=== PATIENT | male | born 1970 | race Caucasian/White ===

== ENCOUNTER 2016-10-30 02:06 | Inpatient (IN) | payer MEDICAID ==
[~2016-10-30] VITALS: Ht 167.6 cm; Wt 84.5 kg
[2016-10-30] VITALS (14 sets, daily range): BP systolic 110–119; BP diastolic 54–82; PULSE 58–80; RESP 13–20; TEMP 98.1; Ht 167.6 cm; Wt 84.5 kg
[~2016-10-30 02:06] MED LIST: HYDR-762 PO; KETO10TA PO; TAMS-14 PO
[2016-10-30] MEDS ORDERED: morphine 4 MG/ML VIAL IV STA (03:36)
[2016-10-30] MEDS ORDERED: SOD CHLORIDE 0.9% 500 ML IV STA (03:36)
[2016-10-30] MEDS ORDERED: ONDANSETRON 4 MG INJ IV STA (03:36)
--- NOTE | 2016-10-30 04:12 | RADRPT ---
PROCEDURE: CT Abdomen and pelvis without contrast. CLINICAL INDICATION: Abdominal pain. TECHNIQUE: CT scan of the abdomen and pelvis was performed on a multi-detector high-resolution CT scanner. Contiguous axial images were obtained from the lung bases to the ischial tuberosities wit hout intravenous contrast. Coronal and sagittal reformatted images were also obtained. Images were reviewed on the PACS workstation. One or more of the following dose reduction techniques were used: - Automated exposure control. - Adjustment of the mA and/or kV according to patient size. - Use of iterative reconstruction technique. Exam CTD/vol = 12.81 mGy. Total exam DLP = 862.46 mGy-cm. COMPARISON: 08/18/2015. FINDINGS: Evaluation of the lung bases demonstrates mild bibasilar atelectasis. Abdomen: The liver is normal in size and diffusely low in attenuation consistent with fatty infiltr ation. There is no focal mass or dilatation of the biliary tree. The gallbladder is not distended. The spleen, pancreas and bilateral adrenal glands are within normal limits. Bilateral kidneys are normal in size with no contour deforming mass identified. There are multiple renal calculi bilater ally with the largest in the upper pole of the left kidney measuring 5 mm. There is no radiopaque u reteral calculus identified. There is no hydronephrosis or hydroureter. There is no retroperitonea l adenopathy. The abdominal aorta is of normal caliber with scattered atherosclerotic calcification s. There is a small umbilical hernia containing fat. There is no bowel obstruction or free air. There is a distended and fluid filled appendix extending medial to the cecum measuring up to 10 mm in katina meter with mild adjacent stranding. There is no diverticulosis or diverticulitis. There is no asci chas. Pelvis: The bladder is unremarkable. The prostate and seminal vesicles are within normal limits. There is no significant pelvic adenopathy or free fluid. Evaluation of the osseous structures demonstrates no suspicious lytic or blastic lesion. IMPRESSION: Acute appendicitis. Bilateral nonobstructing renal calculi. Fatty infiltration of the liver. Small umbilical hernia containing fat. Vascular calcifications reflective of atherosclerosis. A call report was made to Dr. Chandler at 04:10 a.m. .Ephraim Chakraborty MD, MD Date Time Electronically viewed and signed by .Ephraim Chakraborty MD, MD on 10/30/2016 04:12 .T/
--- NOTE | 2016-10-30 04:14 | RADRPT ---
PROCEDURE: Abdominal ultrasound, limited. CLINICAL INDICATION: Abdominal pain. TECHNIQUE: Multiple real-time images were acquired of the patient's right upper abdomen utilizing a high resolution transducer. COMPARISON: None FINDINGS: The liver demonstrates normal echogenicity and size measuring 16.5 cm. There is no focal mass or in trahepatic biliary ductal dilatation. The portal vein is patent. The gallbladder is not distended. No gallstones are identified. There is no pericholecystic fluid or gallbladder wall thickening. The common bile duct measures 3.8 mm in maximal dimension. The pancreas is obscured by overlying clementina wel gas. No free fluid is identified. The right kidney is normal size and echogenicity measuring 11.3 cm. There is no focal renal mass or echogenic calculus identified. There is no obstructive uropathy. The visualized abdominal aorta a nd vena cava are unremarkable. IMPRESSION: Pancreas obscured by overlying bowel gas. Otherwise unremarkable right upper abdominal ultrasound. .Ephraim Chakraborty MD, Date Time Electronically viewed and signed by .Ephraim Chakraborty MD, MD on 10/30/2016 04:14 .T/
[2016-10-30] MEDS ORDERED: AMPICILLIN/SULB 3 GM/NS (PMX) 100 ML IVPB ONE (04:30)
[2016-10-30 04:47] LABS: ALBUMIN 4.3 g/dl (3.3-4.9); ALBUMIN/GLOBULIN RATIO 1.26; BILIRUBIN,INDIRECT 0.5 mg/dl (0-1.1); BILIRUBIN,TOTAL 0.5 mg/dl (0.2-1.3); CALCIUM 9.7 mg/dl (8.4-10.2); CREATININE 1.05 mg/dl (0.61-1.24); POTASSIUM 4.5 mmol/L (3.5-5.1); TOTAL PROTEIN 7.7 g/dl (6.1-8.1)
--- NOTE | 2016-10-30 04:51 | HP ---
Date/Time of Note Date/Time of Note DATE: 10/30/16 TIME: 04:48 Assessment/Plan VTE Prophylaxis VTE Prophylaxis Intervention: SCD's Assessment/Plan Assessment/Plan 1. Acute appendicitis 2. Jose non obstructing renal stones PLAN: Admit med surg NPO+meds, IVF, pain meds, antiemetics Gen surg consult with Dr Ramirez obtained by ER Empiric abx pending sx supportive care Plan of care has been discussed with patient, questions answered and patient has verbalized understanding. HPI/ROS Admit Date/Time Admit Date/Time 10/30/16 Hx of Present Illness 46 yo M who presents with severe abd painfrom last night. initially in his abdomen, he attributed it to food, but now in RLQ. CT consistent with acute appy. Patient is admitted for further mgt and surgical review. ROS 12 point review if systems was done and pertinent findings are as noted. Constitutional: nausea, No febrile ENT: no complaints Respiratory: no complaints Cardiovascular: no complaints Gastrointestinal: decreased appetite, nausea, pain, passing stool, No vomiting Musculoskeletal: no complaints Skin: no complaints PMH/Family/Social Past Medical History Medical History: no pertinent history Past Surgical History Past Surgical Hx: no surgical history Social History Alcohol Use: none Smoking Status: Never smoker Exam/Review of Systems Vital Signs Vitals Vital Signs Date Time Temp Pulse Resp B/P Pulse Ox O2 Delivery O2 Flow Rate FiO2 10/30/16 02:16 98.1 81 20 130/83 98 Exam Constitutional: alert, oriented Head: normocephalic Eyes: PERRL ENMT: mucosa pink and moist Neck: supple Respiratory: clear to auscultation, normal air movement Cardiovascular: bruits, regular rate and rhythm Gastrointestinal: bowel sounds, tender (RLQ mild guarding) Musculoskeletal: nl extremities to inspection Extremities: No edema Neurological: nl mental status Skin: diaphoresis Labs Result Diagram: 10/30/16 0352 Medications Medications Current Medications Ampicillin Sodium/ Sulbactam Sodium (Unasyn 3gm/NS (Pmx)) 100 ml @ 100 mls/hr ONCE ONCE IVPB ; Start 10/30/16 at 04:30; Stop 10/30/16 at 05:29 Procedures Procedures PROCEDURE: CT Abdomen and pelvis without contrast. CLINICAL INDICATION: Abdominal pain. TECHNIQUE: CT scan of the abdomen and pelvis was performed on a multi- detector high-resolution CT scanner. Contiguous axial images were obtained from the lung bases to the ischial tuberosities without intravenous contrast. Coronal and sagittal reformatted images were also obtained. Images were reviewed on the PACS workstation. One or more of the following dose reduction techniques were used: - Automated exposure control. - Adjustment of the mA and/or kV according to patient size. - Use of iterative reconstruction technique. Exam CTD/vol = 12.81 mGy. Total exam DLP = 862.46 mGy-cm. COMPARISON: 08/18/2015. FINDINGS: Evaluation of the lung bases demonstrates mild bibasilar atelectasis. Abdomen: The liver is normal in size and diffusely low in attenuation consistent with fatty infiltration. There is no focal mass or dilatation of the biliary tree. The gallbladder is not distended. The spleen, pancreas and bilateral adrenal glands are within normal limits. Bilateral kidneys are normal in size with no contour deforming mass identified. There are multiple renal calculi bilaterally with the largest in the upper pole of the left kidney measuring 5 mm. There is no radiopaque ureteral calculus identified. There is no hydronephrosis or hydroureter. There is no retroperitoneal adenopathy. The abdominal aorta is of normal caliber with scattered atherosclerotic calcifications. There is a small umbilical hernia containing fat. There is no bowel obstruction or free air. There is a distended and fluid filled appendix extending medial to the cecum measuring up to 10 mm in diameter with mild adjacent stranding. There is no diverticulosis or diverticulitis. There is no ascites. Pelvis: The bladder is unremarkable. The prostate and seminal vesicles are within normal limits. There is no significant pelvic adenopathy or free fluid. Evaluation of the osseous structures demonstrates no suspicious lytic or blastic lesion. IMPRESSION: Acute appendicitis. Bilateral nonobstructing renal calculi. Fatty infiltration of the liver. Small umbilical hernia containing fat. Vascular calcifications reflective of atherosclerosis. A call report was made to Dr. Chandler at 04:10 a.m. .Ephraim Chakraborty MD, Date Time Electronically viewed and signed by .Ephraim Chakraborty MD, MD on 10/30/2016 04:12 .T/ CC: ANNA CHANDLER MD PROCEDURE: Abdominal ultrasound, limited. CLINICAL INDICATION: Abdominal pain. TECHNIQUE: Multiple real-time images were acquired of the patient's right upper abdomen utilizing a high resolution transducer. COMPARISON: None FINDINGS: The liver demonstrates normal echogenicity and size measuring 16.5 cm. There is no focal mass or intrahepatic biliary ductal dilatation. The portal vein is patent. The gallbladder is not distended. No gallstones are identified. There is no pericholecystic fluid or gallbladder wall thickening. The common bile duct measures 3.8 mm in maximal dimension. The pancreas is obscured by overlying bowel gas. No free fluid is identified. The right kidney is normal size and echogenicity measuring 11.3 cm. There is no focal renal mass or echogenic calculus identified. There is no obstructive uropathy. The visualized abdominal aorta and vena cava are unremarkable. IMPRESSION: Pancreas obscured by overlying bowel gas. Otherwise unremarkable right upper abdominal ultrasound. .Ephraim Chakraborty MD, MD Date Time Electronically viewed and signed by .Ephraim Chakraborty MD, MD on 10/30/2016 04:14 .T/ CC: ANNA CHANDLER MD ABE, BOLATITO M. Oct 30, 2016 04:50
--- NOTE | 2016-10-30 05:11 | ERA ---
ER Documentation Chief Complaint Date/Time DATE: 10/30/16 TIME: 05:08 Chief Complaint c/o right mid abdominal pain with nausea started at 9pm HPI 46-year-old male with remote history of ureterolithiasis who presents the emergency room with right-sided abdominal pain. He described epigastric and right upper abdominal pain now slightly migratory to the right lower quadrant. It started around 8 or 9 PM yesterday evening. Mild nausea. Mild anorexia. No fevers or chills. ROS All systems reviewed and are negative except as per history of present illness. Medications Home Meds Active Scripts Tamsulosin Hcl* (Flomax*) 0.4 Mg Cap.er.24h, 0.4 MG PO DAILY, #7 CAP Prov:RODRIGO PHAM MD 08/18/15 Ketorolac Tromethamine* (Ketorolac Tromethamine*) 10 Mg Tablet, 10 MG PO Q8H Y for PAIN, #12 TAB With food or milk Prov:RODRIGO PHAM MD 08/18/15 Hydrocodone Bit-Acetaminophen* ([place]*) 10-325 Mg Tablet, 1 TAB PO Q6 Y for PAIN , #8 TAB Prov:RODRIGO PHAM MD 08/18/15 Allergies Allergies: Coded Allergies: No Known Allergy (Unverified , 08/18/15) PMhx/Soc History of Surgery: No Anesthesia Reaction: No Hx Neurological Disorder: No Hx Respiratory Disorders: No Hx Cardiac Disorders: No Hx Psychiatric Problems: No Hx Miscellaneous Medical Probl: Yes (kidney stones) Hx Alcohol Use: No Hx Substance Use: No Hx Tobacco Use: No Smoking Status: Never smoker FmHx Family History: No diabetes Physical Exam Vitals Vital Signs Date Time Temp Pulse Resp B/P Pulse Ox O2 Delivery O2 Flow Rate FiO2 10/30/16 02:16 98.1 81 20 130/83 98 Physical Exam General: Well developed, well nourished, no acute distress Head: Normocephalic, atraumatic. Eyes: Pupils equally reactive, EOM intact ENT: Moist mucous membranes Neck: Supple, no lymphadenopathy Respiratory: Lungs clear bilaterally, no distress Cardiovascular: RRR, no murmurs, rubs, or gallops Abdominal: Soft, tenderness located to McBurney's point, negative Montoya sign, no peritonitis : No hernia MSK: No edema, no unilateral swelling, 5/5 strength Neurologic: Alert and oriented, moving all extremities, normal speech, no focal weakness, no cerebellar signs Skin: No rash Psych: Normal mood Result Diagram: 10/30/16 0352 Results 24 hrs Laboratory Tests Test 10/30/16 03:52 White Blood Count Pending Red Blood Count Pending Hemoglobin Pending Hematocrit Pending Mean Corpuscular Volume Pending Mean Corpuscular Hemoglobin Pending Mean Corpuscular Hemoglobin Concent Pending Red Cell Distribution Width Pending Platelet Count Pending Mean Platelet Volume Pending Sodium Level 138mmol/L Potassium Level 4.5mmol/L Chloride Level 101mmol/L Carbon Dioxide Level 27mmol/L Anion Gap 15 Blood Urea Nitrogen 14mg/dl Creatinine 1.05mg/dl Glucose Level 148mg/dl Calcium Level 9.7mg/dl Total Bilirubin 0.5mg/dl Direct Bilirubin 0.00mg/dl Indirect Bilirubin 0.5mg/dl Aspartate Amino Transf (AST/SGOT) 35IU/L Alanine Aminotransferase (ALT/SGPT) 56IU/L Alkaline Phosphatase 83IU/L Total Protein 7.7g/dl Albumin 4.3g/dl Globulin 3.40g/dl Albumin/Globulin Ratio 1.26 Lipase 44U/L Current Medications Medications (Trade) Dose Ordered Sig/Kelly Route PRN Reason Start Time Stop Time Status Last Admin Dose Admin Sodium Chloride (NS) 500 ml @ 500 mls/hr Q1H STAT IV 10/30/16 03:36 10/30/16 04:35 DC 10/30/16 03:55 Morphine Sulfate (morphine) 4 mg ONCE STAT IV 10/30/16 03:36 10/30/16 03:38 DC 10/30/16 03:55 Ondansetron HCl 4 mg 4 mg ONCE STAT IV 10/30/16 03:36 10/30/16 03:38 DC 10/30/16 03:55 Ampicillin Sodium/ Sulbactam Sodium (Unasyn 3gm/NS (Pmx)) 100 ml @ 100 mls/hr ONCE ONCE IVPB 10/30/16 04:30 10/30/16 05:29 10/30/16 04:53 Procedures/MDM EKG, MONITORS, & DIAGNOSTIC IMAGING: CT abdomen and pelvis: Acute appendicitis per radiology wet read Gallbladder ultrasound: No acute findings per radiology LAB INTERPRETATION: CBC pending, no electrolyte abnormalities MEDICAL DECISION MAKING: The patient presents with migratory right lower quadrant abdominal pain concerning for acute appendicitis. Given moderate pretest probability for appendicitis CT imaging ordered. ER COURSE: The patient is n.p.o. He was given IV fluids and pain control medication. The patient's CT shows evidence of acute appendicitis. The patient was given Unasyn. His CBC is pending but no evidence of severe sepsis or septic shock at this time. The patient will remain n.p.o. and be admitted for surgical management of acute appendicitis. I kept the patient and/or family informed of laboratory and diagnostic imaging results throughout the emergency room course. DISPOSITION PLAN: Medical surgical admission for management of acute appendicitis CONSULTATION: Accepting care team and consultations: I discussed the current laboratory data, diagnostic imaging and emergency care provided. Admitting team: Dr. Rouse Admitting team indication: Insurance directed Consulting services: Dr. Ramirez, general surgery Departure Diagnosis: Primary Impression: Acute appendicitis Qualified Code: K35.80 - Acute appendicitis, unspecified acute appendicitis type Condition: Stable ANNA THAKUR MD Oct 30, 2016 05:10
[2016-10-30 05:27] LABS: BASOPHIL # 0.1 10^3/ul (0.0-0.1); BASOPHILS % 0.3 % (0.0-2.0); EOSINOPHILS % 0.2 % (0.0-7.0); HEMATOCRIT 44.4 % (42.0-52.0); HEMOGLOBIN 15.2 g/dl (14.0-18.0); LYMPHOCYTES # 1.6 10^3/ul (0.8-2.9); LYMPHOCYTES % 10.2 % (15.0-51.0); MEAN CORPUSCULAR HGB CONC 34.2 g/dl (32.0-37.0); MEAN CORPUSCULAR VOLUME 90.6 fl (82.0-101.0); MEAN PLATELET VOLUME 11.4 fl (7.4-10.4); MONOCYTE # 1.1 10^3/ul (0.3-0.9); MONOCYTES % 7.1 % (0.0-11.0); NEUTROPHILS % 81.8 % (39.0-77.0); PLATELET COUNT 178 10^3/UL (140-415); WHITE BLOOD COUNT 15.6 10^3/ul (4.8-10.8)
[2016-10-30] MEDS ORDERED: ONDANSETRON 4 MG INJ IV PRN ×4 (05:30→17:00)
[2016-10-30] MEDS ORDERED: ACETAMINOPHEN 325 MG TAB PO PRN ×2 (05:30→17:00)
[2016-10-30] MEDS ORDERED: [UNRECOGNIZED DRUG - OTHER] (05:36)
[2016-10-30] MEDS ORDERED: morphine 2 MG INJ IV PRN ×2 (07:00→17:00)
[2016-10-30] MEDS ORDERED: SEVOFLURANE 15 MIN ONE (07:00)
[2016-10-30] MEDS: metroNIDAZOLE 500 MG/NS (PMX) 100 ML IVPB SCH ×3 (07:21→21:26)
[2016-10-30 08:53] LABS: ADD UMIC NO; UR ASCORBIC ACID NEGATIVE (NEGATIVE); UR BILIRUBIN (Dip) NEGATIVE (NEGATIVE); UR BLOOD (Dip) NEGATIVE (NEGATIVE); UR CLARITY CLEAR (CLEAR); UR COLOR STRAW (YELLOW); UR GLUCOSE (Dip) NEGATIVE (NEGATIVE); UR KETONES (Dip) NEGATIVE (NEGATIVE); UR LEUKOCYTE ESTERASE (Dip) NEGATIVE Leu/ul (NEGATIVE); UR NITRITE (Dip) NEGATIVE (NEGATIVE); UR SPECIFIC GRAVITY (Dip) 1.011 (1.003-1.030); UR TOTAL PROTEIN (Dip) NEGATIVE (NEGATIVE); UR UROBILINOGEN (Dip) NEGATIVE (NEGATIVE)
[2016-10-30] MEDS: CIPROFLOXACIN 400MG/D5W 200 ML IVPB SCH ×2 (08:53→20:20)
[2016-10-30] MEDS ORDERED: LIDOCAINE 1% (MPF) 30 ML INJ ONE (16:32)
[2016-10-30] MEDS ORDERED: BUPIVACAINE 0.25% (MPF) 30 ML INJ ONE (16:32)
[2016-10-30] MEDS ORDERED: SUCCINYLCHOLINE CHLORIDE 100 MG/5 ML SYG IV ONE (17:00)
[2016-10-30] MEDS ORDERED: LIDOCAINE 2% (SDV) 5 ML INJ ONE (17:00)
[2016-10-30] MEDS ORDERED: METOCLOPRAMIDE 10 MG INJ IV PRN (17:00)
[2016-10-30] MEDS ORDERED: OXYCODONE/ACETAMINOPHEN (5/325) TAB PO PRN ×2 (17:00)
[2016-10-30] MEDS ORDERED: HYDROCODONE/APAP (5/325) TAB PO PRN (17:00)
[2016-10-30] MEDS ORDERED: MEPERIDINE 100 MG INJ ONE (17:00)
[2016-10-30] MEDS ORDERED: FENTAnyl 50 MCG/ML VIAL IV PRN ×3 (17:00)
[2016-10-30] MEDS ORDERED: EPHEDrine SULFATE 50 MG/5 ML SYG IV PRN (17:00)
[2016-10-30] MEDS ORDERED: MIDAZOLAM 1 MG/ML 2 ML INJ IV PRN (17:00)
[2016-10-30] MEDS ORDERED: HYDROmorphONE (0.2 MG/ML) 10ML SYG IV PRN ×3 (17:00)
[2016-10-30] MEDS ORDERED: GLYCOPYRROLATE 0.4 MG INJ ONE ×2 (17:00→17:21)
[2016-10-30] MEDS ORDERED: NEOSTIGMINE 3 MG/3 ML SYRINGE ONE ×2 (17:00→17:21)
[2016-10-30] MEDS ORDERED: PROPOFOL 20 ML ONE (17:00)
[2016-10-30] MEDS ORDERED: hydrALAzine 20 MG INJ IV PRN (17:00)
[2016-10-30] MEDS ORDERED: DIPHENHYDRAMINE 50 MG INJ IV PRN (17:00)
[2016-10-30] MEDS ORDERED: ROCURONIUM 50 MG INJ ONE (17:00)
[2016-10-30] MEDS ORDERED: LABETALOL HCL 20MG INJ IV PRN (17:00)
[2016-10-30] MEDS ORDERED: MEPERIDINE 25 MG INJ IV PRN (17:00)
--- NOTE | 2016-10-30 17:20 | CONS ---
DATE OF ADMISSION: 10/30/2016 DATE OF CONSULTATION: 10/30/2016 HISTORY OF PRESENT ILLNESS: Mr. Mcfarlane is a 46-year-old male with acute onset of epigastric abdominal pain last night, localizing to his right lower quadrant. He had nausea but no emesis. He denies fevers or chills. Due to his symptoms, he presented to the ER and his workup was consistent with acute appendicitis. PAST MEDICAL HISTORY: Noncontributory. PAST SURGICAL HISTORY: None. MEDICATION: None. ALLERGIES: NO KNOWN DRUG ALLERGIES. SOCIAL HISTORY: Drinks occasionally. Denies smoking or drug abuse. REVIEW OF SYSTEMS: A 14-point review of systems was performed. Pertinent findings as HPI. PHYSICAL EXAMINATION: GENERAL APPEARANCE: He is a well-nourished, well-developed male, in no apparent distress. VITAL SIGNS: He is afebrile, vital signs stable. CHEST: Clear to auscultation bilaterally. HEART: Regular rhythm. ABDOMEN: Soft, nondistended, with significant right lower quadrant tenderness. NECK: Supple. NEUROLOGIC: Grossly intact. PSYCH: He has normal affect and is appropriate. SKIN: No masses or lesions. EXTREMITIES: No clubbing, cyanosis, or edema. LABORATORY: Reveal white count of 16, hematocrit of 45 and platelets of 178. Sodium 138, potassium 4.5, chloride 101, CO2 of 27, BUN and creatinine 14 and 1, and glucose 148. CT is consistent with acute appendicitis. IMPRESSION AND PLAN: Mr. Mcfarlane is a 46-year-old male with acute appendicitis. I discussed laparoscopic possible open appendectomy with the patient. All benefits, risks, alternatives discussed in detail. Questions were answered and the patient wants to proceed. Dictated By: Blaze Ramirez MD /chase/litzy /Document#: [id number]
[2016-10-30] MEDS ORDERED: ONDANSETRON 4 MG INJ ONE (17:22)
--- NOTE | 2016-10-30 17:51 | OPR ---
Date/Time of Note Date/Time of Note DATE: 10/30/16 TIME: 17:47 Operative Report Procedure Date: Oct 30, 2016 Preoperative Diagnosis Acute appendicitis Postoperative Diagnosis Same Operation Performed Laparoscopic appendectomy Surgeon: GAY RAMIREZ MD Assistant Import Manager: BARBARA GALINDO MD Anesthesia Type: general Anesthesiologist: LINDSAY HARP MD Estimated Blood Loss: minimal Transfusion Required: no Specimens Appendix Complications: no Pt Condition Post Procedure: stable Disposition: PACU Indications The patient is a 46 year male who had acute onset of abdominal pain localizes to right lower quadrant. He presented to the ER where his workup was consistent with acute appendicitis. I discussed laparoscopic, possible open appendectomy. All benefits, risks, alternatives were discussed in detail. All questions answered. The patient like to proceed Operative\Procedure Findings Acute appendicitis Procedure Description PREOPERATIVE DIAGNOSIS: Acute appendicitis. POSTOPERATIVE DIAGNOSIS: Acute appendicitis. PROCEDURE: Laparoscopic appendectomy. SURGEON: Gay Ramirez MD RECYCLING SORTER: None. ANESTHESIA: General endotracheal. DESCRIPTION OF PROCEDURE: The patient was brought to the operating room, placed supine on the table. Preoperative antibiotics and SCDs were placed. The abdomen was cleaned, prepped and draped in sterile fashion. All incisions were infiltrated with 1 percent lidocaine with epi after being marked prior to incision. A 5 mm incision was made in the umbilicus. Using a 5 mm laparoscopic trocar the abdomen was entered under direct vision, insufflated with 15 mmHg. The following trocars were then placed under direct vision; right lower quadrant 5 mm and left lower quadrant 12 mm. Emanating from the cecum was an obvious acute appendicitis that was not ruptured or perforated. A made a rent in the mesentery at the base of the appendix, divided the cecum at the base of the appendix with a 35 mm white load. The appendiceal mesentery was then divided with a 35 mm white load. The appendix was placed in the Endocatch bag and removed through the 12 mm trocar site. I visualized my staple lines. There was some slight oozing which was controlled with 5 mm clips. I then irrigated out the pelvis often was clear. I visualized my staple lines again. They were hemostatic. At this point I desufflated all trocars. The fascia at the 12 mm trocar site was closed with 0 Vicryl. The skin incisions were all closed with 4-0 Monocryl and Steri-Strips. The patient tolerated the procedure well, was extubated in the OR and transferred to the recovery room in stable condition. GAY RAMIREZ MD Oct 30, 2016 17:51
[2016-10-30] MEDS: KETOROLAC 30 MG INJ IV SCH ×2 (18:23→23:07)
[2016-10-30] MEDS: PIPER-TAZO 3.375 GM IV (PMX) 100 ML IVPB SCH ×2 (19:00→23:16)
[2016-10-30] MEDS: D5-NS + KCL 20 MEQ 1,000 ML IV SCH (20:15)
[2016-10-31 02:10] VITALS: BP 91/53; RESP 18
[2016-10-31] MEDS: D5-NS + KCL 20 MEQ 1,000 ML IV SCH (02:59)
[2016-10-31 04:38] VITALS: BP 99/57; PULSE 72
[2016-10-31] MEDS: KETOROLAC 30 MG INJ IV SCH ×2 (04:38→11:13)
[2016-10-31] MEDS: metroNIDAZOLE 500 MG/NS (PMX) 100 ML IVPB SCH (05:31)
[2016-10-31] MEDS: PIPER-TAZO 3.375 GM IV (PMX) 100 ML IVPB SCH ×2 (06:29→11:56)
[2016-10-31 06:50] LABS: BASOPHILS % 0.3 % (0.0-2.0); EOSINOPHILS # 0.1 10^3/ul (0.0-0.5); EOSINOPHILS % 0.6 % (0.0-7.0); HEMATOCRIT 38.5 % (42.0-52.0); LYMPHOCYTES # 2.4 10^3/ul (0.8-2.9); LYMPHOCYTES % 24.3 % (15.0-51.0); MEAN CORPUSCULAR HEMOGLOBIN 31.1 pg (29.0-33.0); MEAN CORPUSCULAR HGB CONC 33.8 g/dl (32.0-37.0); MEAN CORPUSCULAR VOLUME 92.1 fl (82.0-101.0); MEAN PLATELET VOLUME 11.3 fl (7.4-10.4); MONOCYTE # 0.9 10^3/ul (0.3-0.9); MONOCYTES % 9.3 % (0.0-11.0); PLATELET COUNT 178 10^3/UL (140-415); RED BLOOD COUNT 4.18 10^6/ul (4.70-6.10); WHITE BLOOD COUNT 9.8 10^3/ul (4.8-10.8)
[2016-10-31] MEDS ORDERED: ENOXAPARIN 40 MG/0.4 ML SYG SC SCH (07:00)
[2016-10-31 07:24] LABS: CALCIUM 8.4 mg/dl (8.4-10.2); CREATININE 1.16 mg/dl (0.61-1.24); POTASSIUM 4.4 mmol/L (3.5-5.1)
[2016-10-31 07:38] LABS: CHOL/HDL RATIO 4.4 RATIO
[2016-10-31 07:58] VITALS: BP 91/55; RESP 16
[2016-10-31] MEDS: CIPROFLOXACIN 400MG/D5W 200 ML IVPB SCH (08:24)
--- NOTE | 2016-10-31 12:05 | PDOCDIS ---
Discharge Instructions DIAGNOSIS Discharge Diagnosis Acute appendicitis. Status post laparoscopic appendectomy. CONDITION Patient Condition: Stable HOME CARE INSTRUCTIONS: Diet Instructions: Regular FOLLOW UP/APPOINTMENTS Follow-up Plan Blaze Ramirez MD Specialty General Surgery Office Address [address] [place] [address] Office OTHER ORDERS: Other Orders: 1. Regular diet as tolerated. 2. Keep incisions clean and dry. May shower. Avoid tub baths and swimming for 2 weeks. Use mild soap and pat dry the incisions. 3. Take medications as needed for pain. 4. Call the surgeon or go to the nearest ER if you have severe abdominal pain despite pain medications. 5. Call the surgeon or go to the nearest ER if you notice any bleeding or secretions coming out of the incision sites. Also call the surgeon if you notice any blood in stool, if you have persistent fevers, or any other unusual signs or symptoms. 6. Follow-up with the surgeon Dr. Ramirez in 7 days for incision check. 7. Avoid heavy lifting [more than 25 pounds] for 8 weeks. SCHOOL/WORK RELEASE May return to School/Work on: Nov 03, 2016 May return to School/Work with: With Restrictions (No heavy lifting greater than 25 pounds until 12/25/2016.) TARIQ SIMONS NP Oct 31, 2016 12:04
[2016-10-31] MEDS ORDERED: DOCU-144 PO (12:06)
[2016-10-31] MEDS ORDERED: OXYC-279 PO (12:31)
--- NOTE | 2016-10-31 12:44 | DS ---
Date/Time of Note Date/Time of Note DATE: 10/31/16 TIME: 12:39 Discharge Summary Admission/Discharge Info Admit Date/Time Oct 30, 2016 at 05:08 Discharge Date/Time Discharge Diagnosis 1. Acute appendicitis. Status post laparoscopic appendectomy. 2. Nephrolithiasis. Patient Condition: Stable Consults Blaze Ramirez MD, General Surgery. Procedures 1. Laparoscopic Appendectomy on 10/30/2016. 2. CT Scan of the Abdomen and Pelvis IMPRESSION: Acute appendicitis. Bilateral nonobstructing renal calculi. Fatty infiltration of the liver. Small umbilical hernia containing fat. Vascular calcifications reflective of atherosclerosis. 3. Abdominal Ultrasound IMPRESSION: Pancreas obscured by overlying bowel gas. Otherwise unremarkable right upper abdominal ultrasound. Hx of Present Illness This is a 45-year-old male with no significant past medical history other than recent history of nephrolithiasis who came to the emergency room with chief complaint of abdominal pain. The patient had underlying leukocytosis. The patient's CT scan showed acute appendicitis and bilateral nonobstructing renal calculi with fatty infiltration of the liver and a small umbilical hernia containing fat. Provided the patient's history of present illness and the diagnostic findings, a clinical decision was made to admit the patient to inpatient setting to have him further evaluated. Hospital Course The patient was admitted to inpatient setting. The patient was kept n.p.o. He was started on empiric antibiotics and analgesics. The patient underwent a laparoscopic appendectomy. Postoperatively, the patient was started on a clear liquid diet and the patient's diet was advanced as tolerated to regular consistency diet with no significant gastrointestinal symptoms. The patient was encouraged on frequent ambulation and frequent use of incentive spirometry. The patient was cleared by general surgery to be discharged home. The patient has a prior history of nephrolithiasis. The patient's current imaging showed bilateral nonobstructing renal calculi. The patient had a stable hospital course. Discharge Instructions 1. Regular diet as tolerated. 2. Keep incisions clean and dry. May shower. Avoid tub baths and swimming for 2 weeks. Use mild soap and pat dry the incisions. 3. Take medications as needed for pain. 4. Call the surgeon or go to the nearest ER if you have severe abdominal pain despite pain medications. 5. Call the surgeon or go to the nearest ER if you notice any bleeding or secretions coming out of the incision sites. Also call the surgeon if you notice any blood in stool, if you have persistent fevers, or any other unusual signs or symptoms. 6. Follow-up with the surgeon Dr. Ramierz in 7 days for incision check. 7. Avoid heavy lifting [more than 25 pounds] for 8 weeks. The patient verbalized understanding of his discharge instructions. At this time I would like to thank Dr. Ramirez for seeing the patient, doing the necessary procedures, and providing clinical recommendations. Case discussed with Dr. Manzano. Home Meds Active Scripts Oxycodone HCl/Acetaminophen (Percocet 5-325 mg Tablet) 1 Each Tablet, 2 EACH PO Q6H for PAIN, #25 TAB Prov:TARIQ SIMONS NP 10/31/16 Docusate Sodium* (Colace*) 100 Mg Capsule, 100 MG PO DAILY for 7 Days, #14 CAP Prov:TARIQ SIMONS NP 10/31/16 Tamsulosin Hcl* (Flomax*) 0.4 Mg Cap.er.24h, 0.4 MG PO DAILY, #7 CAP Prov:RODRIGO PHAM MD 08/18/15 Discontinued Reported Medications [Dipyron] No Conflict Check 10/30/16 Discontinued Scripts Ketorolac Tromethamine* (Ketorolac Tromethamine*) 10 Mg Tablet, 10 MG PO Q8H Y for PAIN, #12 TAB With food or milk Prov:RODRIGO PHAM MD 08/18/15 Hydrocodone Bit-Acetaminophen* (Centuria*) 10-325 Mg Tablet, 1 TAB PO Q6 Y for PAIN , #8 TAB Prov:RODRIGO PHAM MD 08/18/15 Follow-up Plan Follow-up with Dr. Ramirez in 1-2 weeks for incision check. Primary Care Provider Not On Staff Doctor Time spent on discharge: > 30 minutes Pending Labs Laboratory Tests Test 10/31/16 05:51 White Blood Count 9.810^3/ul (4.8-10.8) Red Blood Count 4.1810^6/ul (4.70-6.10) Hemoglobin 13.0g/dl (14.0-18.0) Hematocrit 38.5% (42.0-52.0) Mean Corpuscular Volume 92.1fl (82.0-101.0) Mean Corpuscular Hemoglobin 31.1pg (29.0-33.0) Mean Corpuscular Hemoglobin Concent 33.8g/dl (32.0-37.0) Red Cell Distribution Width 12.0% (11.5-14.5) Platelet Count 60897^3/UL (140-415) Mean Platelet Volume 11.3fl (7.4-10.4) Neutrophils % 65.0% (39.0-77.0) Lymphocytes % 24.3% (15.0-51.0) Monocytes % 9.3% (0.0-11.0) Eosinophils % 0.6% (0.0-7.0) Basophils % 0.3% (0.0-2.0) Nucleated Red Blood Cells % 0.0/100WBC (0.0-0.0) Neutrophils # (Manual) 6.410^3/ul (1.7-7.5) Lymphocytes # 2.410^3/ul (0.8-2.9) Monocytes # 0.910^3/ul (0.3-0.9) Eosinophils # 0.110^3/ul (0.0-0.5) Basophils # 0.010^3/ul (0.0-0.1) Nucleated Red Blood Cells # 0.010^3/ul (0.0-0.0) Sodium Level 143mmol/L (135-144) Potassium Level 4.4mmol/L (3.5-5.1) Chloride Level 102mmol/L (97-110) Carbon Dioxide Level 29mmol/L (21-31) Anion Gap 16 (8-16) Blood Urea Nitrogen 13mg/dl (7-20) Creatinine 1.16mg/dl (0.61-1.24) Glucose Level 121mg/dl (70-220) Hemoglobin A1c 5.8% (0-5.9) Calcium Level 8.4mg/dl (8.4-10.2) Magnesium Level 2.0mg/dl (1.7-2.5) Triglycerides Level 257mg/dl (0-149) Cholesterol Level 132mg/dl (100-200) LDL Cholesterol, Calculated 51mg/dl HDL Cholesterol 30mg/dl (27-67) Cholesterol/HDL Ratio 4.4RATIO TARIQ SIMONS NP Oct 31, 2016 12:44
[2016-10-31 14:25] VITALS: BP 96/56; RESP 18
== END 2016-10-31 15:10 | disposition home or self-care (01) | DRG 343 ==
LOC: E/R 02:06 → PP2 05:08
PROVIDERS: ADMIT Family Medicine; ATTEND Family Medicine
PROC: 0DTJ4ZZ Resection of Appendix, Percutaneous Endoscopic Approach (ICD-10-PCS; principal; 2016-10-30 17:30)
DX: K35.80 Unspecified acute appendicitis (principal); K76.0 Fatty (change of) liver, not elsewhere classified; N20.0 Calculus of kidney; K42.9 Umbilical hernia without obstruction or gangrene; I70.90 Unspecified atherosclerosis
CPT/HCPCS: 36415; 74176; 76705; 80048; 80053; 80061; 81003; 83036; 83690; 83735; 85025; 88304; 96365; 96366; 96367; 96375; J0295; J0744; J1650; J1885; J2175; J2270; J2405; J2543; J2710; J3480; J7040; J7999